=== PATIENT | male | born 1960 | race African-American/Black ===

== ENCOUNTER 2018-07-23 18:27 | Emergency (ER) | payer OTHER ==
[~2018-07-23] VITALS: Ht 188 cm; Wt 100.0 kg
[2018-07-23] MEDS ORDERED: BLOOD PRESSURE PO (18:39)
[2018-07-23 20:11] VITALS: BP 115/61
== END 2018-07-23 20:50 | disposition home or self-care (01) ==
LOC: EMS 18:27
DX: M79.622 Pain in left upper arm (principal); I10 Essential (primary) hypertension
CPT/HCPCS: 99282